=== PATIENT | male | born 2000 | race Hispanic/Latino ===

== ENCOUNTER 2018-11-03 14:46 | Emergency (ER) | payer OTHER ==
[2018-11-03] MEDS ORDERED: Lidocaine 1% w/Epinephrine 1:100K 20 ML VIAL ONE (15:48)
== END 2018-11-03 17:54 | disposition home or self-care (01) ==
LOC: ERS 14:46
DX: L05.01 Pilonidal cyst with abscess (principal); J45.909 Unspecified asthma, uncomplicated
CPT/HCPCS: 10080; J2001